=== PATIENT | male | born 1980 | race Hispanic/Latino ===

== ENCOUNTER 2019-05-18 19:40 | Emergency (ER) | payer OTHER ==
[2019-05-18] MEDS ORDERED: ERYTHROMYCIN BASE 0.5% OPHTH OINT 1 GM TUBE ONE (20:20)
== END 2019-05-18 21:09 | disposition home or self-care (01) ==
LOC: EDH 19:40
DX: H00.035 Abscess of left lower eyelid (principal); Z90.49 Acquired absence of other specified parts of digestive tract